=== PATIENT | male | born 1995 | race Caucasian/White ===

== ENCOUNTER 2019-05-24 11:09 | Emergency (ER) | payer OTHER ==
[~2019-05-24] VITALS: Ht 172.7 cm; Wt 90.9 kg
--- NOTE | 2019-05-24 12:05 | ED Psychosocial ---
General Chief Complaint: Psych/Social Disorder Stated Complaint: ANXIETY Nursing Triage Note: Pt amb to triage with c/o anxiety. Pt rerports on 05/23/19, while @ work, he became SOA, and fell to the ground in a panic. Pt reports increasing anxiety and depression <3 months. Pt reports he is wanting resources for mental health. Pt denies suicidal ideation or suicide attempt. A&OX4. Source: patient Exam Limitations: no limitations History of Present Illness Date Seen by Provider: May 24, 2019 Time Seen by Provider: 11:58 Initial Comments To ER with increasing anxiety and depression for the past few weeks, yesterday while at work he became short of breath all the ground in a panic. Takes no medications for this. Has no thoughts of killing himself. No homicidal thoughts. Severity: moderate Associated Symptoms: anxiety Allergies and Home Medications Patient Home Medication List Home Medication List Reviewed: Yes Review of Systems Constitutional: see HPI EENTM: see HPI Respiratory: no symptoms reported Cardiovascular: no symptoms reported Genitourinary: no symptoms reported Musculoskeletal: no symptoms reported Skin: no symptoms reported Psychiatric/Neurological: See HPI, Anxiety Past [id number] Hx Patient Social History Alcohol Use: Rarely Uses Number of Drinks Today: 0 Recreational Drug Use: No Smoking Status: Never a Smoker 2nd Hand Smoke Exposure: No Recent Foreign Travel: No Contact w/Someone Who Travel: No Recent Infectious Disease Expo: No Recent Hopitalizations: No Physical Abuse: No Sexual Abuse: No Past Medical History Surgeries: No (Denies medical hx. ) Physical Exam Vital Signs - First Documented 05/24/19 11:35 Temp 36.9 Pulse 90 Resp 18 B/P (MAP) 163/95 (117) Pulse Ox 99 O2 Delivery Room Air Capillary Refill : Less Than 3 Seconds Height, Weight, BMI Height: '" Weight: lbs. oz. kg; 30.00 BMI Method: General Appearance: WD/WN, no apparent distress HEENT: PERRL/EOMI, normal ENT inspection Neck: non-tender, full range of motion Respiratory: no respiratory distress, no accessory muscle use Cardiovascular: regular rate, rhythm, no murmur Gastrointestinal: normal bowel sounds, non tender, soft Neurologic/Psychiatric: alert, normal mood/affect, oriented x 3 Appearance/Memory: appropriate appearance, appropriate insight, neat Behavior/Eye Contact: cooperative, good eye contact Thoughts/Hallucinations: normal thought pattern, no apparent hallucination Skin: normal color, warm/dry Progress/Results/Core Measures Results/Orders Vital Signs/I&O 05/24/19 11:35 Temp 36.9 Pulse 90 Resp 18 B/P (MAP) 163/95 (117) Pulse Ox 99 O2 Delivery Room Air Blood Pressure Mean: 117 POS Departure Impression Primary Impression: Anxiety Disposition: 01 HOME, SELF-CARE Condition: Stable Departure-Patient Inst. Decision time for Depature: 12:02 Referrals: DALJIT UPTON DO Patient Instructions: Panic Disorder (DC) Add. Discharge Instructions: 1. Take the daily medication called escitalopram as directed. Started at 10 mg daily (one half tab) for one week then increase to 20 mg daily thereafter. In the meantime use the lorazepam as needed up to twice a day for anxiety. Return to ER for any worsening symptoms or other concerns. He can call [facility] at [phone] or [facility] as a mental health services as well. Either way you should follow up with primary care next week.. Scripts Lorazepam (Ativan) 0.5 Mg Tablet 0.5 MG PO BID PRN for ANXIETY for 7 Days, #10 TAB Prov: LIUDMILA WEST APRN 05/24/19 Escitalopram Oxalate (Lexapro) 20 Mg Tablet 20 MG PO DAILY, #30 TAB 1 Refill Prov: LIUDMILA WEST APRN 05/24/19 LIUDMILA WEST APRN May 24, 2019 12:05 POS
[2019-05-24] MEDS ORDERED: ESCI20TA PO (12:07)
[2019-05-24] MEDS ORDERED: LORA-404 PO (12:07)
[2019-05-24 12:18] VITALS: BP 163/95
== END 2019-05-24 12:19 | disposition home or self-care (01) ==
LOC: ER 11:10
DX: F41.9 Anxiety disorder, unspecified (principal)
CPT/HCPCS: 99285